=== PATIENT | female | born 1945 | race Caucasian/White ===

== ENCOUNTER → 2019-11-25 11:51 | Outpatient (BNVA) | payer MEDICARE, BC, SELFPAY | PROVIDERS: PCP Family Medicine; Referring Provider Family Medicine; Visit Provider Internal Medicine Cardiovascular Disease | DX: R00.1 Bradycardia, unspecified (principal); R55 Syncope and collapse; I35.0 Nonrheumatic aortic (valve) stenosis; R20.0 Anesthesia of skin; E78.5 Hyperlipidemia, unspecified; I10 Essential (primary) hypertension | CPT/HCPCS: 84439; 84443 ==

== ENCOUNTER 2020-01-01 13:55 | Outpatient (CLI) | payer MEDICARE, BC, SELFPAY ==
--- NOTE | 2020-01-01 14:15 | USCV_ITS ---
Crystal Boswell Age: 74 Gender: F : 1945 Exam Date: 01/01/2020 14:17 Ordering Phys: Anu Gonzales MD ([email or web address]) Technologist: MIMI SHAFER [place] [facility] [place]: TIA Risk Factors: Previous Vascular Surgery: Right Brachial BP: / Left Brachial BP: / Right Left Velocity (cm/s) Spectral Plaque Velocity (cm/s) Spectral Plaque Syst/Diast Broadening Syst/Diast Broadening 90.40/ 16.50 Prox CCA 83.80 / 24.30 84.90/ 17.60 Mid CCA 79.40 / 18.70 76.10/ 16.30 Distal CCA 63.90 / 16.50 54.30/ 11.00 Prox ICA 56.70 / 14.80 83.30/ 28.80 Mid ICA 59.80 / 19.40 66.40/ 21.30 Distal ICA 101.00/ 41.90 83.10 ECA 73.00 0.98 ICA/CCA 0.75 Antegrade Vertebral Antegrade 55.20/ 12.50 cm/s 43.50/ 10.90 cm/s Bi Subclavian Tri 76.00 77.70 FINDINGS Mild to moderate plaques at the left bifurcation and internal carotid artery. Minimal plaques of the right bifurcation internal carotid artery. Intimal thickening in the common carotid arteries bilaterally. Antegrade flow in the vertebral arteries bilaterally. Normal Doppler flow velocities in the external carotid arteries bilaterally. CONCLUSIONS Mild to moderate plaques at the left bifurcation and internal carotid artery. Minimal plaques of the right bifurcation internal carotid artery. No significant stenosis, based on the above findings Dr Anu Gonzales MD [facility] (Electronically Signed) Final Date: 02 January 2020 19:14 S
== END 2020-01-01 13:56 | disposition home or self-care (01) ==
LOC: RAD 13:59
PROVIDERS: PCP Family Medicine; Visit Provider Internal Medicine Cardiovascular Disease
DX: R20.0 Anesthesia of skin (principal); G45.9 Transient cerebral ischemic attack, unspecified
CPT/HCPCS: 93880

== ENCOUNTER 2020-02-13 06:58 | Outpatient (CLI) | payer MEDICARE, BC, SELFPAY ==
[2020-02-13 07:18] VITALS: BMI 24.3
--- NOTE | 2020-02-13 07:22 | ECG_ITS ---
[facility] Test Date: 2020-02-13 Pat Name: Crystal Boswell Department: Room: Gender: Female Loom Doffer: : 1945 Requested By: Anu Gonzales Order Number: [id number] Elijah MD: Anu Gonzales M.D. Interpretive Statements NAME OF STUDY: LEXISCAN SESTAMIBI STRESS TEST INDICATION: V Tach, Shortness of breath/RESULTS TO ROQUE NGUYEN MD PROCEDURE: At the baseline, the EKG revealed sinus bradycardia with a rate of 40 bpm. Possible old septal microinfarction. Diffuse nonspecific ST changes. The baseline blood pressure was 165/81 mm Hg with a heart rate of 48 beats/min. Lexiscan was infused over a period of 20 seconds. A total of 0.4 milligrams of Lexiscan was infused. The stress phase was continued for a total of 5 minutes. Heart rate at the end of the stress phase was 74 with a blood pressure 171/78. The EKG at the peak infusion revealed no significant changes. Sestamibi was injected 20 seconds after the Lexiscan infusion. Blood pressure at the end of the recovery phase was 153/81 with a heart rate of 69 per minute. CONCLUSION: 1. No significant EKG changes with the LexiScan infusion 2. No LexiScan induced chest pain or cardiac arrhythmia 3. Normal blood pressure and heart rate response 4. Sestamibi/sestamibi perfusion scan pending; see separate report. Electronically Signed On 02-26-2020 19:22:24 CDT by Anu Gonzales M.D. [id number]
--- NOTE | 2020-02-13 07:23 | NMCV_ITS ---
NM tree perf SPECT r/s* [id number] Crystal Boswell Age: 74 Gender: F : 1945 Exam Date: 02/13/2020 08:10 Ordering Phys: Anu Gonzales MD ([email or web address]) Technologist: ZENOBIA Landrum Exam Location: [facility] Indications: SHORTNESS OF BREATH, SYNCOPE AND COLLAPSE STRESS TEST Please see separate stress test report in [facility] for full findings IMAGE PROTOCOL Rest/Stress 1 Lexiscan Day Radiopharmaceutical Dose (mCi) Administration Site Administered by Rest: Tc-99m 10.9 IV ZENOBIA Ramos Sestamibi Stress:Tc-99m 32.7 IV ZENOBIA Ramos Sestamibi Rest: 13-Feb-2020 60 Discovery 630 Stress: 13-Feb-2020 30 Discovery 630 0.4mg Lexiscan. Images obtained in supine and prone position. SPECT RESULTS Technical Quality: Excellent Raw Data Analysis: Normal Image Corrections: No attenuation or motion correction applied Summed Stress Score: 1 Summed Rest Score: 0 Summed Difference Score: 1 PERFUSION FINDINGS Patchy areas of decreased tracer uptake was noted in the apical region. No significant reversibility was noted in this region FUNCTIONAL RESULTS (calculated via Gated SPECT) Stress Image LV EF (%): 68 Stress EDV (mL):120 TID: 0.94 Stress ESV (mL):38 FUNCTIONAL FINDINGS: Segmental wall motion analysis revealing no gross wall motion abnormalities. IMPRESSIONS 1. Myocardial perfusion imaging revealing patchy areas of persistent decreased tracer uptake in the apical region, most likely represent attenuation artifacts. 2. Normal LV ejection fraction of 68%. 3. LV wall motion analysis revealing no gross wall motion normalities. 4. Normal LV volume. No significant coronary ischemia, based on the above findings Dr Anu Gonzales MD [facility] (Electronically Signed) Final Date: 13 February 2020 19:56 S
--- NOTE | 2020-02-13 07:39 | USCV_ITS ---
Crystal Boswell Age: 74 Gender: F : 1945 Exam Date: 02/13/2020 07:49 Ordering Phys: Anu Gonzales MD ([email or web address]) Technologist: Bassam Dow Exam Location: [facility] [place] Indication: CHEST PAIN BP: 127 / 67 HR: 47 Rhythm: Sinus Technical Quality: Fair MEASUREMENTS (Male / Female) Normal Values 2D ECHO LV Diastolic Diameter PLAX 4.3 cm 4.2 - 5.9 / 3.9 - 5.3 cm LV Systolic Diameter PLAX 3.1 cm IVS Diastolic Thickness 0.9 cm 0.6 - 1.0 / 0.6 - 0.9 cm IVS Systolic Thickness 1.2 cm LVPW Diastolic Thickness 1.1 cm 0.6 - 1.0 / 0.6 - 0.9 cm LVPW Systolic Thickness 1.2 cm LVOT Diameter 2.1 cm LV Ejection Fraction 2D Teich 56.7 % LV Ejection Fraction MOD 2C 69.0 % LV Ejection Fraction 2C AL 68.1 % LA Diameter 3.4 cm LA Width 4.3 cm LA Height 5.2 cm RA Width 3.5 cm RA Height 4.2 cm M-MODE LV Diastolic Diameter MM 4.8 cm 4.2 - 5.9 / 3.9 - 5.3 cm LV Systolic Diameter MM 3.1 cm LV Ejection Fraction MM Teich 63.3 % IVS Diastolic Thickness MM 1.3 cm 0.6 - 1.0 / 0.6 - 0.9 cm IVS Systolic Thickness MM 1.6 cm LVPW Diastolic Thickness MM 1.4 cm 0.6 - 1.0 / 0.6 - 0.9 cm LVPW Systolic Thickness MM 1.7 cm RV Diastolic Diameter MM 1.5 cm Aortic Annulus Diameter 3.1 cm LA Ao Ratio MM 1.1 MV E Point Septal Separation 0.7 cm DOPPLER AV Peak Velocity 136.0 cm/s LVOT Peak Velocity 90.0 cm/s AV Area Cont Eq vti 2.3 cm squared AV Area Cont Eq pk 2.3 cm squared MV Area PHT 5.0 cm squared Mitral E to A Ratio 1.3 MV E' Velocity 10.0 cm/s Mitral E to MV E' Ratio 9.2 Mitral E to LV E' Lateral Ratio 8.1 Mitral E to LV E' Septal Ratio 10.8 TR Peak Velocity 310.0 cm/s TR Peak Gradient 38.5 mmHg TV Peak E Velocity 100.0 cm/s Right Atrial Pressure 3.0 mmHg Pulmonary Artery Systolic Pressu 41.4 mmHg FINDINGS Left Ventricle Normal left ventricular size and systolic function, EF 68 %. No regional wall motion abnormalities. Right Ventricle Normal right ventricular size and systolic function. Right Atrium Normal right atrial size. Left Atrium Mildly increased left atrial size. Mitral Valve Thickened mitral valve. Mild mitral valve regurgitation. Aortic Valve Thickened aortic valve. Tricuspid Valve Mild tricuspid valve regurgitation. Pulmonic Valve Pulmonic valve not well visualized. Pericardium No pericardial effusion. Aorta Normal aortic annulus size. CONCLUSIONS Normal left ventricular size and systolic function, EF 68 %. No regional wall motion abnormalities. Normal right ventricular size and systolic function. Mildly increased left atrial size. Thickened mitral valve. Mild mitral valve regurgitation. Thickened aortic valve. Mild tricuspid valve regurgitation. Estimated pulmonary artery peak systolic pressure was 41 mmHg There is no pericardial effusion. There are no intracardiac masses. No previous studies are available for comparison Dr Anu Gonzales MD [facility] (Electronically Signed) Final Date: 13 February 2020 20:17 S
--- NOTE | 2020-02-13 08:59 | SUR.PREOP ---
Patient reports no pain or discomfort prior to the start of the procedure.
[2020-02-13] MEDS: regadenoson 0.4 Mg/5 ml Syringe IVP (09:00)
[2020-02-13 09:20] VITALS: BP 126/76; PULSE 76
== END 2020-02-13 06:59 | disposition home or self-care (01) ==
LOC: CDL 06:59
PROVIDERS: PCP Family Medicine; Visit Provider Internal Medicine Cardiovascular Disease
DX: R55 Syncope and collapse (principal); R06.02 Shortness of breath; I08.3 Combined rheumatic disorders of mitral, aortic and tricuspid valves
CPT/HCPCS: 78452; 93017; 93306; A9500; J2785

== ENCOUNTER 2020-12-16 12:43 | Outpatient (CLI) | payer MEDICARE, BC, SELFPAY ==
--- NOTE | 2020-12-16 12:47 | MR_ITS ---
WS: [id number] MRI LUMBAR SPINE NONCONTRAST HISTORY: LOW BACK PAIN Comment lifting injury 2 weeks ago. COMPARISON: None available. TECHNIQUE: Sagittal and axial multisequence imaging is submitted. Increase in the thoracic kyphosis. Mild disc bulging centrally at T5-6 and T6-7. Mild RIGHT scoliosis. L3 anterolisthesis by 6.8 mm. Moderate to severe disc space narrowing at L4-5 a nd L5-S1. Acute marrow edema along the superior endplate of L3 with mild anterior wedging of the vertebral body . No retropulsion or edema in the posterior elements. Conus terminates normally at L1. L1-L2: Mild facet arthritis. No stenosis. L2-L3: Very slight annular disc bulging with moderate ligamentum flavum hypertrophy encroaching into the central thecal sac and facet arthritis. Mild central and bilateral subarticular recess stenosis a nd foraminal stenosis. L3-L4: Diffuse annular disc bulging. Moderate to severe ligamentum flavum hypertrophy encroaching theresa trally. Bilateral facet joint arthritis. Mild central stenosis and bilateral subarticular recess and mild foraminal stenosis. Slightly greater contact on the LEFT L4 nerve root. L4-L5: Diffuse annular disc bulging with mild central stenosis. Moderate-sized disc osteophyte extend ing into the RIGHT lateral recess and subarticular foramen. Encroachment upon the RIGHT lateral theca l sac by the osteophyte. Mild encroachment and narrowing of the LEFT subarticular foramen. Mild bilat eral foraminal stenosis. L5-S1: Diffuse annular disc bulging contacting the ventral thecal sac with a central shallow disc pro trusion. There is disc contacting the S1 nerve roots bilaterally with mild RIGHT subarticular recess stenosis. Cystic mass in the LEFT kidney measures 3.0 cm transverse. There is a smaller cyst exophytic from the posterior mid RIGHT kidney. MR/MR lumbar spine wo con* [id number] IMPRESSION: 1. 10% acute compression fracture at L3 with no retropulsion. 2. Disc osteophyte encroachment into the RIGHT lateral recess and subarticular foramen at L4-5 with contact on the L5 nerve root. Mild central stenosis at L4 -5. 3. Disc contacting S1 nerve roots bilaterally with mild RIGHT subarticular rec ess stenosis at L5-S1. 4. Mild central, bilateral subarticular recess and foraminal stenosis at L2-3 and L3-4. 5. L3 anterolisthesis by 6.8 mm.
== END 2020-12-16 12:44 | disposition home or self-care (01) ==
LOC: RADWPI 12:46
PROVIDERS: PCP Family Medicine; Visit Provider Nurse Practitioner Family
DX: M54.5 Low back pain (principal); S32.039A Unspecified fracture of third lumbar vertebra, initial encounter for closed fracture; X58.XXXA Exposure to other specified factors, initial encounter; M25.78 Osteophyte, vertebrae; M48.061 Spinal stenosis, lumbar region without neurogenic claudication; M48.07 Spinal stenosis, lumbosacral region
CPT/HCPCS: 72148